=== PATIENT | female | born 1990 | race Hispanic/Latino ===

== ENCOUNTER 2018-05-09 21:21 | Emergency (ER) | payer MEDICAID, OTHER ==
[2018-05-09 21:32] VITALS: BMI 27.8
[2018-05-09 21:37] VITALS: RESP 18; TEMP 97.6
[2018-05-09] MEDS ORDERED: Albuterol-Ipratrop 3 mg / 0.5 (3 ml) UD IH STA (22:03)
[2018-05-09] MEDS ORDERED: guaiFENesin 200 mg/10 ml Syrup UD PO ONE (22:03)
--- NOTE | 2018-05-09 22:05 | ED PDOC ---
Arrival/HPI - General Chief Complaint: ENT Problem Time Seen by Provider: 05/09/18 21:21 Historian: Patient - History of Present Illness Narrative History of Present Illness (Text): 05/09/18 22:05 28 yo F c/o 2 day pleuritic cp with sob associated with 2 week h/o productive cough. Patient went to [facility] ER yesterday for similar symptoms, had an EKG, CXR, which were normal and a breathing treatment and told her she was "fine," and given Rx for breathing treatments to do at home. Today symptoms continue, the chest pain is reproducible with coughing and sneezing. States that she has had these symptoms before and were related to bronchitis. She also reports of LLQ pain with coughing. Otherwise patient reports no fever, chills, N/V/D. Reports that her daughters have been sick with viral illness. JOANNE Vital Past Medical History - Infectious Disease Hx of Infectious Diseases: None - Tetanus Immunization Tetanus Immunization: Unknown - Genitourinary/Gynecological Other/Comment: precancerous cells - Psychiatric Hx Psychophysiologic Disorder: No Hx Depression: No Hx Emotional Abuse: No Hx Physical Abuse: No Hx Substance Use: No - Anesthesia Hx Anesthesia: No Hx Anesthesia Reactions: No Hx Malignant Hyperthermia: No - Suicidal Assessment Feels Threatened In Home Enviroment: No Family/Social History Family/Social History: No Known Family HX Smoking Status: Light Smoker < 10 Cigarettes Daily Hx Alcohol Use: Yes (socially) Hx Substance Use: No Hx Substance Use Treatment: No Allergies/Home Meds Allergies/Adverse Reactions: Allergies No Known Allergies Allergy (Verified 05/09/18 21:39) Home Medications: Home Meds Medication Instructions Recorded Confirmed Norethindrone AC-Eth Estradiol 1 tab PO DAILY 07/07/05/09/18 [Loestrin 21 1.5/30 30 Mcg-1.5 mg] Review of Systems - Review of Systems Constitutional: absent: Fatigue, Fevers ENT: absent: Sore Throat, Rhinorrhea, Sinus Congestion Respiratory: Cough, Sputum. absent: SOB, Wheezing Cardiovascular: Chest Pain. absent: Palpitations Gastrointestinal: Abdominal Pain. absent: Nausea, Vomiting Genitourinary Female: absent: Dysuria, Frequency Musculoskeletal: absent: Arthralgias, Back Pain, Neck Pain Skin: absent: Rash, Skin Lesions Neurological: absent: Headache, Dizziness Physical Exam Vital Signs Temp Pulse Resp BP Pulse Ox 05/09/18 21:36 97.6 F 83 18 120/70 96 Temperature: Afebrile Blood Pressure: Normal Pulse: Regular Respiratory Rate: Normal Appearance: Positive for: Well-Appearing, Non-Toxic, Comfortable (laying comfortably in bed), Other (no respiratory distress, speaking in full sentences) Pain Distress: None Mental Status: Positive for: Alert and Oriented X 3 - Systems Exam Head: Present: Atraumatic, Normocephalic Pupils: Present: PERRL Extroacular Muscles: Present: EOMI Conjunctiva: Present: Normal Ears: Present: Normal, NORMAL TM Mouth: Present: Moist Mucous Membranes Pharnyx: Present: Normal. No: ERYTHEMA, EXUDATE Neck: Present: Normal Range of Motion. No: Meningeal Signs, Lymphadenopathy Respiratory/Chest: Present: Clear to Auscultation, Good Air Exchange. No: Respiratory Distress, Accessory Muscle Use Cardiovascular: Present: Regular Rate and Rhythm, Normal S1, S2. No: Murmurs Abdomen: No: Tenderness, Distention, Peritoneal Signs, Rebound, Guarding Back: Present: Normal Inspection Upper Extremity: Present: Normal Inspection. No: Cyanosis, Edema Lower Extremity: Present: Normal Inspection. No: Edema Neurological: Present: GCS=15, CN II-XII Intact, Speech Normal Skin: Present: Warm, Dry, Normal Color. No: Rashes Psychiatric: Present: Alert, Oriented x 3, Normal Insight, Normal Concentration Medical Decision Making ED Course and Treatment: 05/09/18 22:04 Patient given guaifenesin po and duoneb x1. Advised that she had a normal CXR and EKG yesterday and normal VS and PE today indicating that she likely has bronchitis. Diagnosis of likely bronchitis d/w the patient. Advised to follow up with primary care physician in 1-2 days without fail. Advised to take medication as prescribed. Return to the emergency room at any time for any new or worsening symptoms. Patient states she fully agrees with and understands discharge instructions. States that she agrees with the plan and disposition. Verbalized and repeated discharge instructions and plan. I have given the patient opportunity to ask any additional questions. - PA / [employer] / Resident Statement MD/DO has reviewed & agrees with the documentation as recorded. Disposition/Present on Arrival - Present on Arrival Any Indicators Present on Arrival: No History of DVT/PE: No History of Uncontrolled Diabetes: No Urinary Catheter: No History of Decub. Ulcer: No History Surgical Site Infection Following: None - Disposition Have Diagnosis and Disposition been Completed?: Yes Diagnosis: Bronchitis Disposition: HOME/ ROUTINE Disposition Time: 22:00 Patient Plan: Discharge Patient Problems: Current Active Problems Problem Status Onset Bronchitis Acute Condition: STABLE Discharge Instructions (ExitCare): Acute Bronchitis Additional Instructions: Thank you for letting us take care of you today. You were treated for bronchitis. The emergency medical care you received today was directed at your acute symptoms. If you were prescribed any medication, please fill it and take as directed. It may take several days for your symptoms to resolve. Return to the Emergency Department if your symptoms worsen, do not improve, or if you have any other problems. Please contact your doctor in 2 days for re-evaluation and follow up. Bring any paperwork you were given at discharge with you along with any medications you are taking to your follow up visit. Our treatment cannot replace ongoing medical care by a primary care provider (PCP) outside of the emergency department. Thank you for allowing the [facility] team to be part of your care today. Prescriptions: Guaifenesin 400 mg PO QID #20 tablet
[2018-05-10 00:07] VITALS: BP 118/60; PULSE 79; O2SAT 100
== END 2018-05-09 22:41 | disposition home or self-care (01) ==
LOC: ED 21:21
DX: J40 Bronchitis, not specified as acute or chronic (principal); F17.210 Nicotine dependence, cigarettes, uncomplicated

== ENCOUNTER 2018-07-08 16:02 | Emergency (ER) | payer MEDICAID ==
[2018-07-08 16:02] VITALS: BMI 27.8
[2018-07-08 16:35] VITALS: BP 105/68; PULSE 72; RESP 18; TEMP 98.2; O2SAT 99
--- NOTE | 2018-07-08 16:59 | ED PDOC ---
Arrival/HPI - General Chief Complaint: Female Genitourinary Time Seen by Provider: 07/08/18 16:28 Historian: Patient - History of Present Illness Narrative History of Present Illness (Text): 07/08/18 16:28 Pt is a 28 year old female, with history of ovarian cysts, pap smear unremarkable (last year), and on control, who presents to the emergency department complaining of vaginal bleed since 2 days. Patient is concerned b ecause she had her menses 15 days ago. 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 Patient denies fevers, chills, chest pain, shortness of breath, abdominal pain, nausea, vomiting, dysuria, hematuria, urinary frequency, vaginal discharge, or any other complaints. Time/Duration: < week (2 day) Symptom Onset: Sudden Symptom Course: Unchanged Activities at Onset: Light Context: Home Past Medical History - Provider Review Nursing Documentation Reviewed: Yes - Infectious Disease Hx of Infectious Diseases: None - Tetanus Immunization Tetanus Immunization: Unknown - Reproductive Menopause: No - Cardiac Hx Cardiac Disorders: No - Genitourinary/Gynecological Other/Comment: precancerous cells , ovarian cyst - Psychiatric Hx Psychophysiologic Disorder: No Hx Depression: No Hx Emotional Abuse: No Hx Physical Abuse: No Hx Substance Use: No - Anesthesia Hx Anesthesia: No Hx Anesthesia Reactions: No Hx Malignant Hyperthermia: No - Suicidal Assessment Feels Threatened In Home Enviroment: No Family/Social History - Physician Review Nursing Documentation Reviewed: Yes Family/Social History: Unknown Family HX Smoking Status: Light Smoker < 10 Cigarettes Daily Hx Alcohol Use: Yes (socially) Hx Substance Use: No Hx Substance Use Treatment: No Allergies/Home Meds Allergies/Adverse Reactions: Allergies No Known Allergies Allergy (Verified 05/09/18 21:39) Home Medications: Home Meds Medication Instructions Recorded Confirmed Norethindrone AC-Eth Estradiol 1 tab PO DAILY 07/08/11 05/09/18 [Loestrin 21 1.5/30 30 Mcg-1.5 mg] Review of Systems - Review of Systems Constitutional: absent: Fevers, Other (chills) Respiratory: absent: SOB Cardiovascular: absent: Chest Pain, Palpitations, Edema Gastrointestinal: absent: Abdominal Pain, Constipation, Diarrhea, Nausea, Vomiting Genitourinary Female: Vaginal Bleeding. absent: Dysuria, Frequency, Hematuria, Vaginal Discharge Physical Exam Vital Signs Reviewed: Yes Vital Signs Temp Pulse Resp BP Pulse Ox 07/08/18 16:25 98.2 F 72 18 105/68 99 Temperature: Afebrile Blood Pressure: Normal Pulse: Regular Respiratory Rate: Normal Appearance: Positive for: Well-Appearing, Non-Toxic, Comfortable Pain Distress: None Mental Status: Positive for: Alert and Oriented X 3 - Systems Exam Head: Present: Atraumatic, Normocephalic Pupils: Present: PERRL Extroacular Muscles: Present: EOMI Conjunctiva: Present: Normal Mouth: Present: Moist Mucous Membranes Neck: Present: Normal Range of Motion Respiratory/Chest: Present: Clear to Auscultation, Good Air Exchange. No: Respiratory Distress, Accessory Muscle Use Cardiovascular: Present: Regular Rate and Rhythm, Normal S1, S2. No: Murmurs Abdomen: No: Tenderness, Distention, Peritoneal Signs Back: Present: Normal Inspection Upper Extremity: Present: Normal Inspection. No: Cyanosis, Edema Lower Extremity: Present: Normal Inspection. No: Edema Neurological: Present: GCS=15, CN II-XII Intact, Speech Normal Skin: Present: Warm, Dry, Normal Color. No: Rashes Psychiatric: Present: Alert, Oriented x 3, Normal Insight, Normal Concentration Medical Decision Making ED Course and Treatment: 07/08/18 16:28 Impression: Pt is a 28 year old female, with history of ovarian cysts, unremarkable pap smear, on control, who presents to the emergency department complaining of vaginal bleed since 2 days. Plan: -- Beta HCG Quant -- POC Urine Test -- Reassess and disposition Prior Visits: Notes and results from previous visits were reviewed. Patient was last seen in the emergency department on Progress Notes: 07/08/18 16:30 Counseled importance of construction engineer tomorrow for vaginal ultrasound 07/08/18 17:14 Eloped while pending test - Scribe Statement The provider has reviewed the documentation as recorded by the Scribe Anderi Merida All medical record entries made by the Scribe were at my direction and personally dictated by me. I have reviewed the chart and agree that the record accurately reflects my personal performance of the history, physical exam, medical decision making, and the department course for this patient. I have also personally directed, reviewed, and agree with the discharge instructions and disposition. Disposition/Present on Arrival - Present on Arrival Any Indicators Present on Arrival: No History of DVT/PE: No History of Uncontrolled Diabetes: No Urinary Catheter: No History of Decub. Ulcer: No History Surgical Site Infection Following: None - Disposition Have Diagnosis and Disposition been Completed?: Yes Diagnosis: Vaginal bleeding Disposition: ELOPEMENT - ER ONLY Disposition Time: 17:14 Patient Problems: Current Active Problems Problem Status Onset Vaginal bleeding Acute Condition: UNKNOWN Forms: [employer] (Persian)
== END 2018-07-08 17:14 | disposition left against medical advice (07) ==
LOC: ED 16:02
DX: N93.9 Abnormal uterine and vaginal bleeding, unspecified (principal)